=== PATIENT | female | born 1990 | race Caucasian/White ===

== ENCOUNTER → 2021-01-23 | Outpatient (CLI) | payer OTHER ==
[2021-01-23 14:20] LABS: FREE T4 1.04 NG/DL (0.76-1.46); THYROID PEROXIDASE ANTIBODY 300.1 U/ML (<60.0); THYROID STIMULATING HORMONE 5.06 uIU/ML (0.358-3.740)
== END ==
LOC: M LAB 11:06
PROVIDERS: ATTEND Nurse Practitioner Family
DX: R94.6 Abnormal results of thyroid function studies (principal)